=== PATIENT | male | born 1985 | race Caucasian/White ===

== ENCOUNTER 2025-04-10 20:29 | Emergency (ER) | payer SELFPAY ==
--- NOTE | 2025-04-10 20:35 | ED.GENMED ---
History of Present Illness
General
Chief Complaint: Crisis Evaluation
Source: patient and police
Exam Limitations: clinical condition
Time Seen by Provider: 04/10/25 20:32
History of Present Illness
History of Present Illness:
Note:
CHIEF COMPLAINT(S)
Acute psychotic crisis
HISTORY OF PRESENT ILLNESS
The patient is a 39-year-old male presenting with an acute psychotic crisis. he was found by police wandering around a property claiming that his girlfriend was communicating with him telepathically and that he had bugs all over his body. He
commenced hallucinating and became agitated, actively kicking the doors and windows of the police car. The patient has been reported as extremely anxious, paranoid, diaphoretic, and combative. He states he is dehydrated and expresses fear. He denies
any medical history, though it is noted in his history that he has been committed for acute psychosis previously.
ADDITIONAL HISTORY OBTAINED FROM SOURCES OTHER THAN THE PATIENT
According to police, they encountered the patient agitated and exhibiting bizarre behaviors, as mentioned.
PHYSICAL EXAM
- Mental Status: Awake, alert, extremely anxious, extremely paranoid, hallucinating.
- Skin: Diaphoretic.
- General: Combative, being restrained by police and security.
DIFFERENTIAL DIAGNOSIS
The Differential Diagnosis includes, in no particular order and is not limited to:
- Acute psychosis
- Schizophrenia
- Substance-induced psychotic disorder
- Delirium
- Cynthia with psychotic features
- Severe anxiety disorder
- Medication or drug interaction
- Neurological condition with psychiatric manifestation
- Paranoid personality disorder
- Post-traumatic stress disorder
CARE-UPDATE
04/11/25 - 01:44
Acidosis was noted and is suspected to be related to the patients combative state upon arrival. Plan to administer additional fluids and repeat P&P.
CARE-UPDATE
04/11/25 - :59
BMP results to be re-evaluated after administering additional fluids, patient showing significant improvement. Currently, the patient is resting comfortably.
Disposition:
SUMMARY OF ENCOUNTER
A 39-year-old male with a history of psychosis presented to the emergency department experiencing an acute psychotic crisis. The patient exhibited profound agitation and was noted to have metabolic acidosis upon initial lab investigations. Treatment
involved the administration of intravenous fluids, which resulted in significant improvement in his acid-base status. The psychotic behavior suggested further evaluation and monitoring. The patients psychotic state, alongside normal pH, PCO2,
creatinine, and improved blood glucose levels, informed the management plan. Substance-induced causes were considered, but salicylates, acetaminophen, and alcohol were not detected. The case was discussed with crisis intervention services for
further placement options.
DISPOSITION
The patient was held for continued observation due to acute psychosis and potential placement pending evaluation with psychiatric services.
INDEPENDENT REVIEW OF LABS AND INTERPRETATION OF TESTS
My independent review of the initial labs shows a metabolic acidosis, which improved significantly with fluid administration. The patients pH is normal at 7.35, PCO2 is normal, creatinine is normal, and blood glucose is improved upon retesting.
Salicylates and acetaminophen are normal, with no alcohol detected.
MEDICAL DECISION MAKING
1. Number & Complexity of Problems: Acute psychosis complicated by metabolic acidosis, agitation, potential substance-induced psychosis were considered.
2. Data Reviewed: Review of basic metabolic panel, blood glucose, and screening for salicylates, acetaminophen, and alcohol indicated normal or expected results following intervention.
3. Risk: The potential for deterioration and profound psychotic behavior justified the need for further psychiatric evaluation and management. Coordination with crisis services addressed risk related to the patients mental health disposition.
PATHOLOGIES TO CONSIDER
Consideration should be given to underlying causes such as acute psychosis, substance-induced psychotic disorder, and potential neurological conditions with psychiatric manifestations due to the presentation of paranoia, hallucinations, and
combative behavior.
Signed out to Dr. Childers at [phone] pending continued observation and placement
Past History
Past History
ED Past Medical History: Psychiatric (Unspecified psychosis, stimulant dependence)
Phy Exam
Physical Exam
Physical Exam:
.
Course
Orders/Labs/Results
Orders:
Orders
04/10/25 20:33
1:1 Observation - Suicide/ Violent Behavior As Directed
Urine Drug Abuse Screen Urgent
Restraints - Violent As Directed
Restraint Type-: Locked-4 point/4 rails
Apply From (date): 04/10/25
Apply from (time): 20:34
Remove (date): 04/11/25
Remove (time): 00:34
04/10/25 20:34
1:1 Observation - Suicide/ Violent Behavior As Directed
04/10/25 20:38
Acetaminophen Urgent
Alcohol Urgent
B-Hydroxybutyrate Urgent
Comment: ADD ON
Complete Blood Count/With Diff Urgent
Comprehensive Metabolic Panel Urgent
Creatine Phosphokinase Urgent
Comment: ADD ON
Salicylate Urgent
04/10/25 21:09
Add On- LAB Urgent
Tests Added?: cpk
0.9% Sodium Chloride 1000 ml [Nss] 1,000 ml IV BOLUS
04/10/25 21:53
Crisis Consult Urgent
Reason for Consult: psych
04/10/25 21:54
Add On- LAB Urgent
Tests Added?: beta hydroxybutyrate
04/10/25 22:04
Venous Blood Gas Urgent
%Oxygen/Room Air: 21
04/11/25 00:30
Restraints - Violent As Directed
Restraint Type-: Locked-4 point/4 rails
Apply From (date): 04/11/25
Apply from (time): 00:30
Remove (date): 04/11/25
Remove (time): 04:47
04/11/25 00:47
1:1 Observation - Suicide/ Violent Behavior As Directed
04/11/25 01:11
Basic Metabolic Panel Urgent
Abnormal Lab Results
06/25/25 06/25/25 06/26/25
20:38 22:04 01:11
WBC 12.4 H 10^3/uL
(4.8-10.8)
RBC 4.68 L 10^6/uL
(4.70-6.10)
MCV 95.5 H fL
(80.0-94.0)
MCH 32.1 H pg
(27.0-31.0)
Abs Immat Gran (auto) 0.1 H 10^3/uL
(0-0.05)
Absolute Neuts (auto) 7.4 H 10^3/uL
(1.4-6.5)
Absolute Lymphs (auto) 3.7 H 10^3/uL
(1.2-3.4)
Absolute Monos (auto) 1.0 H 10^3/uL
(0.1-0.6)
VBG pO2 62 H mmHg
(30-50)
Chloride 115 H mmol/L
(98-107)
Carbon Dioxide 14 L* mmol/L 19 L mmol/L
(22-30) (22-30)
Creatinine 1.4 H mg/dL
(0.7-1.3)
Glucose 282 H mg/dl
(70-99)
Calcium 8.3 L D mg/dl
(8.4-10.2)
Creatine Kinase 192 H U/L
(55-170)
Albumin 5.2 H g/dl
(3.5-5.0)
Salicylates < 1.0 L mg/dl
(2.0-20.0)
Acetaminophen < 10 L ug/ml
(10-30)
04/10/25 20:38
04/11/25 01:11
Vital Signs
Initial and Last Documented VS:
Initial Vital Signs
Temp Pulse Resp BP
98.3 F 134 24 160/11
04/10/25 20:43 04/10/25 20:43 04/10/25 20:43 04/10/25 20:43
Last Documented Vital Signs
Temp Pulse Resp BP Pulse Ox
98.3 F 87 20 141/109 100
04/10/25 20:43 04/11/25 01:00 04/11/25 01:00 04/11/25 01:00 04/11/25 01:46
*Pulse Oximetry
SaO2: 100
Oxygen Mode of Delivery: Room air
Patient hypoxic: no
*Contact Lens Assistant Interpretation
Rate: normal
Interpretation: normal
Rhythm: sinus
*Critical Care Note
Total Time (30-74mins, 75-104mins- exclusive of procedures): 35 minutes
ED Attending Note
-
Portions of this chart may have been created with voice recognition software.� Occasional wrong word or��sound alike� substitutions may have occurred due to the inherent limitations of voice recognition software.
Discharge Plan
Departure
Patient Disposition: Psych Facility
Date of Disposition: 04/10/25
Time of Disposition: 21:56
Discharge Problem:
Psychosis
Interventions
Interventions:
*Risk Screen - Suicide Last Done: 04/10/25 20:48
*General Assessment Last Done: 04/10/25 20:48
*Neglect/Abuse Screening Last Done: 04/10/25 20:48
*ED- Fall Risk Assessment Last Done: 04/10/25 20:48
*ED COVID-19 Vaccine History Last Done: 04/10/25 20:48
ED-Psychological Assessment Last Done: 04/10/25 20:43
Discharge Date and Time
Print Language: ESTONIAN
[2025-04-10 20:43] VITALS: BP 160/11
[2025-04-10 20:46] LABS: % Basophils 0.6 % (0-2); % Eosinophils 1.5 % (0-6); % Immature Granulocytes 0.4 % (0-0.5); % Monocytes 8.1 % (1.7-9.3); % Neutrophils 59.4 % (42.2-75.2); Absolute Basophils 0.1 10^3/uL (0-0.2); Absolute Eosinophils 0.2 10^3/uL (0-0.7); Absolute Immature Granulocytes 0.1 10^3/uL (0-0.05); Absolute Lymphocytes 3.7 10^3/uL (1.2-3.4); Absolute Neutrophils 7.4 10^3/uL (1.4-6.5); Hematocrit 44.7 % (39.0-52.0); Mean Corp Hgb Conc. 33.6 g/dL (33.0-37.0); Mean Corpuscular Hgb 32.1 pg (27.0-31.0); Mean Corpuscular Volume 95.5 fL (80.0-94.0); Mean Platelet Volume 9.8 fL (7.4-10.4); Nucleated Red Blood Cells % 0 % (-); Platelet Count 327 10^3/uL (130-400); Red Blood Cell Count 4.68 10^6/uL (4.70-6.10); Red Cell Dist. Width 12.8 % (11.5-14.5); White Blood Cell Count 12.4 10^3/uL (4.8-10.8)
[2025-04-10 20:48] VITALS: BMI 23.0
[2025-04-10 21:05] LABS: AST (SGOT) 23 U/L (17-59); Acetaminophen < 10 ug/ml (10-30); Albumin 5.2 g/dl (3.5-5.0); Alcohol None Detected; Alkaline Phosphatase 77 U/L (38-126); Blood Urea Nitrogen 10 mg/dl (9-20); Calcium 10.2 mg/dl (8.4-10.2); Carbon Dioxide 14 mmol/L (22-30); Chloride 107 mmol/L (98-107); Estimated Creatinine Clearance 58 ml/min; Glucose 282 mg/dl (70-99); Potassium 4.3 mmol/L (3.5-5.1); Salicylate < 1.0 mg/dl (2.0-20.0); Sodium 144 mmol/L (135-145); Total Bilirubin 0.7 mg/dl (0.2-1.3); Total Protein 7.8 g/dl (6.3-8.2); eGFR > 60.00
[2025-04-10 21:22] LABS: Creatine Phosphokinase 192 U/L (55-170)
[2025-04-10 21:39] LABS: ALT (SGPT) 21 U/L (0-50)
[2025-04-10] MEDS: NSS 1000 IV (21:51)
[2025-04-10 22:18] LABS: Venous Blood Gas B.E. -1.6 mmol/L (-4 to +4); Venous Blood Gas HCO3 24.3 mmol/L (22-27); Venous Blood Gas O2 Sat % 92.3 %; Venous Blood Gas pCO2 44 mmHg (35-48); Venous Blood Gas pH 7.35 (7.32-7.43); Venous Blood Gas pO2 62 mmHg (30-50)
[2025-04-10 22:35] LABS: B-Hydroxybutyrate 0.19 mmol/L (0.02-0.27)
[2025-04-10 23:00] VITALS: BP 140/92
[2025-04-11 01:00] VITALS: BP 141/109
[2025-04-11 01:51] LABS: Blood Urea Nitrogen 10 mg/dl (9-20); Calcium 8.3 mg/dl (8.4-10.2); Carbon Dioxide 19 mmol/L (22-30); Chloride 115 mmol/L (98-107); Estimated Creatinine Clearance 102 ml/min; Glucose 71 mg/dl (70-99); Sodium 142 mmol/L (135-145); eGFR > 60.00
[2025-04-11 02:00] VITALS: BP 121/86
[2025-04-11 04:00] VITALS: BP 124/81
== END 2025-04-11 13:19 ==
LOC: EMR 20:29
PROVIDERS: CONSULT PHYSICIAN Psychiatry & Neurology Psychiatry; EMERGENCY PHYSICIAN Emergency Medicine
DX: F29 Unspecified psychosis not due to a substance or known physiological condition (principal); E87.20 Acidosis, unspecified
CPT/HCPCS: 96360; 99285; 80048; 80053; 80143; 80179; 82010; 82077; 82550; 82805; 85025